=== PATIENT | male | born 1965 | race Caucasian/White ===

== ENCOUNTER 2023-12-21 19:07 | Outpatient (CLI) | payer BC, SELFPAY | END 2023-12-21 19:08 | disposition home or self-care (01) | PROVIDERS: Visit Provider Physician Assistant | DX: R21 Rash and other nonspecific skin eruption (principal) | CPT/HCPCS: 86787; 87070; 87186 ==

== ENCOUNTER 2024-04-08 17:11 | Outpatient (CLI) | payer BC, SELFPAY | END 2024-04-08 17:12 | disposition home or self-care (01) | LOC: NFLDUCREF 17:12 | PROVIDERS: Visit Provider Nurse Practitioner Family | DX: L03.90 Cellulitis, unspecified (principal) | CPT/HCPCS: 87070; 87186 ==